=== PATIENT | female | born 1945 ===

== ENCOUNTER 2020-05-29 16:33 | Emergency (ER) | payer MEDICARE ==
[~2020-05-29] VITALS: Ht 152.4 cm; Wt 55.2 kg
--- NOTE | 2020-05-29 17:02 | NUR ---
PT CO BRUISED FOREHEAD, EYES, LEFT SHOULDER, AND RIGHT KNEE AFTER GLF THIS AM 0230 DUE TO TRIPPING OVER A CAT. PT DENIES PAIN AT THIS TIME.
--- NOTE | 2020-05-29 17:39 | NUR ---
OFF THE FLOOR TO CT
[2020-05-29 18:19] VITALS: BP 136/61
--- NOTE | 2020-05-29 18:45 | NUR ---
PT REC'VD DISCHARGE INSTRUCTIONS AND EDUCATION. PT HAD NO FURTHER QUESTIONS. PT, WITH SISTER, AMBULATED TO DC AREA, STEADY GAIT.
== END 2020-05-29 19:04 | disposition home or self-care (01) ==
LOC: ED 18:55
DX: S00.83XA Contusion of other part of head, initial encounter (principal); G89.11 Acute pain due to trauma; M54.2 Cervicalgia; I10 Essential (primary) hypertension; W01.0XXA Fall on same level from slipping, tripping and stumbling without subsequent striking against object, initial encounter; Y93.89 Activity, other specified; Y92.89 Other specified places as the place of occurrence of the external cause; Y99.8 Other external cause status
CPT/HCPCS: 70450; 70486; 72125; 99285